=== PATIENT | female | born 1990 | race Caucasian/White ===

== ENCOUNTER 2021-11-06 16:10 | Outpatient (CLI) | payer SELFPAY ==
[~2021-11-06] VITALS: Ht 154.9 cm; Wt 70.5 kg
[2021-11-06 16:32] VITALS: BP 113/70
[2021-11-06] MEDS ORDERED: HOME MED LIST COMPLETE! XX SCH (16:35)
[2021-11-06] MEDS ORDERED: PRENTAB9 PO (16:35)
[2021-11-06 17:37] VITALS: BP 111/67
[2021-11-06] MEDS: LR 1,000 ML IV SCH (19:14)
[2021-11-06 19:34] VITALS: BP 112/69
[2021-11-06 22:52] VITALS: BP 93/54
[2021-11-07] MEDS: LR 1,000 ML IV SCH (01:24)
[2021-11-07 01:26] VITALS: BP 113/66
[2021-11-07 06:09] VITALS: BP 104/58
[2021-11-07 07:24] VITALS: BP 103/60
[2021-11-07 11:32] VITALS: BP 99/57
[2021-11-07] MEDS ORDERED: BETAMETHASONE SOLUSPAN 6MG/ML 5ML VIAL (J0702 PER 3MG) IM ONE (14:00)
== END 2021-11-07 15:45 | disposition home or self-care (01) ==
LOC: M LDO 16:10 → EDBD 16:10 → M LDO 11-07 15:45
PROVIDERS: ATTEND Advanced Practice Midwife
DX: O44.03 Complete placenta previa NOS or without hemorrhage, third trimester (principal); O41.03X9 Oligohydramnios, third trimester, other fetus; Z3A.33 33 weeks gestation of pregnancy
CPT/HCPCS: 59025; 76815; 76817; 87081; 96372; G0378; G0463; J0702